=== PATIENT | male | born 1970 | race Caucasian/White ===

== ENCOUNTER 2019-04-30 10:41 | Inpatient (IN) | payer BC, OTHER ==
[~2019-04-30] VITALS: Ht 177.2 cm; Wt 110.0 kg
[~2019-04-30 10:41] MED LIST: ALPR1TAB7 PO; ASPI-903 PO; FISH1CAP PO; GLIP10TA14 PO; LIRA0.6P2 SQ; LISI-471 PO; LISI10TA2 PO; LORA1TAB PO; MAGN400T27 PO; METO-319 PO; METO-335 PO; RIVA20TA5 PO
[2019-04-30] MEDS ORDERED: METOPROLOL 5 MG INJ IV ONE ×2 (11:00→11:30)
[2019-04-30] MEDS ORDERED: ONDANSETRON 4 MG INJ IV STA (11:10)
[2019-04-30] MEDS ORDERED: DILTIAZEM 25 MG INJ ONE (11:35)
[2019-04-30] MEDS ORDERED: DILTIAZEM 25 MG INJ IV ONE (12:00)
[2019-04-30] MEDS ORDERED: ENOXAPARIN 100 MG/ML SYG SC ONE (12:00)
--- NOTE | 2019-04-30 12:19 | ERD ---
ER Documentation Chief Complaint Chief Complaint R39 fr work vomitting w/nuasea & palpitations HPI 49-year-old male presents by paramedics complaining of palpitations. Patient states he was in his normal state of health until this morning at which time he had nausea and nonbilious, nonbloody emesis which she relates to eating something. He states that immediately after vomiting, he had the onset of palpitations. This made him feel somewhat sweaty but he had no chest pain or shortness of breath and did not pass out. The palpitations were significant and he called the paramedics. I have reviewed the 3d technologist pre-hospital care. Pre-hospital vital signs were reviewed. Pre-hospital diagnostic tests were reviewed. Prehospital EKG indicated atrial fibrillation with rapid ventricular response. Upon arrival, patient is complaining of palpitations with no further chest pain or nausea. ROS All systems reviewed and are negative except as per history of present illness. Medications Home Meds Reported Medications Fish Oil/Dha/Epa (FISH OIL 1,200 MG FISH OIL) 1 Each Capsule, 1 EACH PO BID, CAP 04/30/19 Magnesium Oxide* (Mag-Oxide*) 400 Mg Tablet, 400 MG PO DAILY, TAB 04/30/19 Aspirin* (Aspirin* Chew) 81 Mg Tab.chew, 81 MG PO DAILY, TAB.CHEW 04/30/19 Liraglutide (Victoza 3-Moe) 0.6 Mg/0.1 Ml Pen.injctr, 0.6 MG SQ DAILY, SYR 04/30/19 Metoprolol Succinate* (Toprol XL*) 25 Mg Tab.sr.24h, 25 MG PO DAILY, #30 TAB total of 75 mg daily 04/30/19 Metoprolol Succinate* (Toprol XL*) 50 Mg Tab.er.24h, 50 MG PO DAILY, #30 TAB total of 75 mg daily 04/30/19 Lisinopril* (Lisinopril*) 20 Mg Tablet, 20 MG PO DAILY, #30 TAB 04/30/19 Discontinued Reported Medications Lisinopril* (Lisinopril*) 10 Mg Tablet, 10 MG PO DAILY, TAB 04/28/15 Alprazolam* (Alprazolam*) 1 Mg Tablet, 1 MG PO Q8H PRN for ANXIETY, TAB 04/28/15 Glipizide* (Glipizide*) 10 Mg Tablet, 10 MG PO DAILY, TAB 04/28/15 Discontinued Scripts Lorazepam* (Lorazepam*) 1 Mg Tablet, 1 MG PO Q8, #10 TAB Prov:KATIE ALICEA MD 04/28/15 Allergies Allergies: Coded Allergies: No Known Allergy (Unverified , 04/30/19) PMhx/Soc Patient had a previous echocardiogram that was normal and event monitors that were nondiagnostic No obvious ischemic work-up previously History of Surgery: No Anesthesia Reaction: No Hx Neurological Disorder: No Hx Respiratory Disorders: No Hx Cardiac Disorders: No Hx Psychiatric Problems: No Hx Miscellaneous Medical Probl: No Hx Alcohol Use: No Hx Substance Use: No Hx Tobacco Use: No Smoking Status: Never smoker FmHx Noncontributory for chief complaint Physical Exam Vitals Vital Signs Date Temp Pulse Resp B/P (MAP) Pulse Ox O2 O2 Flow FiO2 Time Delivery Rate 04/30/19 92 18 113/77 98 Nasal 2.0 11:55 (89) Cannula 04/30/19 114 18 136/73 99 Nasal 2.0 11:01 (94) Cannula 04/30/19 97.2 144 20 138/106 100 10:48 (117) 04/30/19 Nasal 2 10:45 Cannula Physical Exam GENERAL: Diaphoretic HEENT: Pupils equal, round, and reactive to light. EOMI. There is no scleral icterus. NECK: C-spine is soft and supple, there is no meningismus. There is no cervical lymphadenopathy. LUNGS: Clear to auscultation bilaterally. There are no rales, wheezes or rhonchi. HEART: Rapid, irregularly irregular rate and rhythm with no murmurs ABDOMEN: Soft, non-tender, non-distended. There are bowel sounds in all four quadrants. No rebound or guarding. EXTREMITIES: There is no peripheral cyanosis or edema. No focal swelling or erythema. NEURO: The patient moves all four extremities with 5/5 strength. Cranial nerves II - XII are intact. Normal gait. Alert and oriented SKIN: There is no apparent rash or petechiae. HEME/LYMPHATIC: There is no evidence of excessive bruising or lymphedema. PSYCHIATRIC: The patient does not appear anxious or depressed. Result Diagram: 04/30/19 1045 04/30/19 1045 Results 24 hrs Laboratory Tests Test 04/30/19 10:45 White Blood Count 10.2 10^3/ul Red Blood Count 5.85 10^6/ul Hemoglobin 16.2 g/dl Hematocrit 48.0 % Mean Corpuscular Volume 82.1 fl Mean Corpuscular Hemoglobin 27.7 pg Mean Corpuscular Hemoglobin Concent 33.8 g/dl Red Cell Distribution Width 13.2 % Platelet Count 287 10^3/UL Mean Platelet Volume 9.7 fl Immature Granulocytes % 0.300 % Neutrophils % 54.8 % Lymphocytes % 36.1 % Monocytes % 6.7 % Eosinophils % 1.9 % Basophils % 0.2 % Nucleated Red Blood Cells % 0.0 /100WBC Immature Granulocytes # 0.030 10^3/ul Neutrophils # 5.6 10^3/ul Lymphocytes # 3.7 10^3/ul Monocytes # 0.7 10^3/ul Eosinophils # 0.2 10^3/ul Basophils # 0.0 10^3/ul Nucleated Red Blood Cells # 0.0 10^3/ul Prothrombin Time 12.2 Sec Prothrombin Time Ratio 1.0 INR International Normalized Ratio 0.89 Activated Partial Thromboplast Time 28.5 Sec Sodium Level 140 mmol/L Potassium Level 4.6 mmol/L Chloride Level 103 mmol/L Carbon Dioxide Level 25 mmol/L Anion Gap 12 Blood Urea Nitrogen 19 mg/dl Creatinine 0.73 mg/dl Est Glomerular Filtrat Rate mL/min > 60 mL/min Glucose Level 212 mg/dl Calcium Level 9.9 mg/dl Troponin I < 0.012 ng/ml Current Medications Medications Dose Sig/Edgardo Start Time Status Last (Trade) Ordered Route PRN Stop Time Admin Dose Reason Admin Metoprolol 5 mg ONCE ONCE 04/30/19 DC 04/30/19 Tartrate IV 11:00 04/30/19 10:53 (Lopressor) 11:01 Ondansetron 4 mg ONCE STAT 04/30/19 DC 04/30/19 HCl (Zofran IV 11:10 04/30/19 11:16 Inj) 11:11 Metoprolol 5 mg ONCE ONCE 04/30/19 DC 04/30/19 Tartrate IV 11:30 04/30/19 11:17 (Lopressor) 11:34 Diltiazem 25 mg STK-MED 04/30/19 DC HCl ONCE .ROUTE 11:35 04/30/19 (Cardizem Iv) 11:36 Diltiazem 10 mg ONCE ONCE 04/30/19 DC 04/30/19 HCl IV 12:00 04/30/19 11:42 (Cardizem Iv) 12:01 Enoxaparin 100 mg ONCE ONCE 04/30/19 DC 04/30/19 Sodium SC 12:00 04/30/19 11:59 (Lovenox) 12:01 Procedures/MDM Patient was taken to a room, seen and evaluated. Comfort measures were initiated. Diagnostic tests were ordered and reviewed. 3 LEAD RHYTHM STRIP: Atrial fibrillation with rapid ventricular response [employer] EK lead EKG reviewed by myself: Atrial fibrillation with rapid ventricular response Normal Means and intervals No ST elevation, depression, or T wave inversion Impression: A. fib with RVR, no obvious ischemia EKG upon arrival to the emergency department interpreted by myself: Atrial fibrillation with rapid ventricular response at 149 bpm Normal axis and intervals No significant ST elevation or depression. Impression: A. 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 Patient was reevaluated. Patient appears to be improving, but continues to be a rapid ventricular response remains in atrial fibrillation MEDICAL DECISION MAKIN-year-old male presents the emergency department with acute palpitations indicative of an A. fib with RVR. At this time, patient shows no indications of this being ischemic. Overall, patient is required aggressive medical intervention for rate control and has been anticoagulated. Patient will require admission to the hospital for further rhythm monitoring as well as rate monitoring and further diagnostic evaluation including serial troponins. CRITICAL CARE: Time:>35 minutes Patient has a significant chance of clinical deterioration Treatments/Evaluations: Close monitoring and treatment of unstable vital signs, cardiorespiratory, and neurologic status, while maintaining tight balance of fluid, respiratory, and cardiac interventions. Departure Diagnosis: Primary Impression: Atrial fibrillation with rapid ventricular response Condition: Serious BEAR ALFARO Apr 30, 2019 12:19
[2019-04-30] MEDS ORDERED: ONDANSETRON 4 MG INJ IV PRN (12:30)
[2019-04-30] MEDS ORDERED: ACETAMINOPHEN 325 MG TAB PO PRN ×2 (12:30→13:30)
[2019-04-30] MEDS ORDERED: NACL 0.9% 3 ML SYG IV SCH (13:30)
[2019-04-30] MEDS ORDERED: LORAZEPAM 2 MG INJ IV PRN (13:30)
--- NOTE | 2019-04-30 13:46 | HP ---
Date/Time of Note Date/Time of Note DATE: 04/30/19 TIME: 13:45 Assessment/Plan VTE Prophylaxis Pharmacological prophylaxis: LMWH Lines/Catheters IV [facility]from [facility] Saline Lock Assessment/Plan Hospital Course 49-year-old male with comorbidities including HTN, DM type II, anxiety disorder, and obesity who presented to the emergency room with A. fib with RVR, who will be admitted to inpatient setting for further treatment and evaluation. 1. A. fib with RVR. Rate currently rate controlled. Continue beta-blockers. Obtain cardiology consult. 2D echocardiogram to evaluate the left ventricular ejection fraction. 2. Hypertension. Resume antihypertensives. 3. Diabetes mellitus type II. Hold oral agents. Start sliding scale insulin along with pre-meal insulin and basal insulin. Obtain hemoglobin A1c to evaluate the blood glucose control over the past few weeks. 4. Anxiety disorder. Start PRN anxiolytics. 5. Obesity. BMI 35 kilograms per meter squared. Therapeutic lifestyle changes will be advised. Plan: The patient will be admitted to inpatient telemetry floor. The patient will be started on a carbohydrate controlled diet. The patient will be started on DVT prophylaxis. The patient will remain a full code. Activities will be as tolerated. The rest of the patient's management will be based on the clinical course, inputs from consultants, and the results of diagnostic studies. Based on the patient's clinical presentation, he most probably requires at least 1 midnight's stay for further management and evaluation of his clinical presentation. The patient was seen in collaboration with Dr. Hamm. Result Diagram: 04/30/19 1045 04/30/19 1045 Results 24hrs Laboratory Tests Test 04/30/19 10:45 White Blood Count 10.2 Red Blood Count 5.85 Hemoglobin 16.2 Hematocrit 48.0 Mean Corpuscular Volume 82.1 Mean Corpuscular Hemoglobin 27.7 L Mean Corpuscular Hemoglobin Concent 33.8 Red Cell Distribution Width 13.2 Platelet Count 287 Mean Platelet Volume 9.7 # Immature Granulocytes % 0.300 Neutrophils % 54.8 Lymphocytes % 36.1 Monocytes % 6.7 Eosinophils % 1.9 Basophils % 0.2 Nucleated Red Blood Cells % 0.0 Immature Granulocytes # 0.030 Neutrophils # 5.6 Lymphocytes # 3.7 H Monocytes # 0.7 Eosinophils # 0.2 Basophils # 0.0 Nucleated Red Blood Cells # 0.0 Prothrombin Time 12.2 Prothrombin Time Ratio 1.0 INR International Normalized Ratio 0.89 Activated Partial Thromboplast Time 28.5 Sodium Level 140 Potassium Level 4.6 Chloride Level 103 Carbon Dioxide Level 25 Anion Gap 12 Blood Urea Nitrogen 19 Creatinine 0.73 Est Glomerular Filtrat Rate mL/min > 60 Glucose Level 212 Calcium Level 9.9 Troponin I < 0.012 HPI/ROS Admit Date/Time Admit Date/Time Hx of Present Illness This is a 49-year-old German male with past medical history of hypertension, anxiety, and diabetes mellitus type 2. The patient presented to the emergency room from work because of vomiting with nausea and palpitations. When paramedics arrived, the patient was noted to be in atrial fibrillation with rapid ventricular response. The patient denied any chest pain or dyspnea. The patient was complaining of some diaphoresis. The patient verbalized a similar episode approximately 1 year ago when he had palpitations after an episode of vomiting. The patient verbalized that he he ate some food that gave him vomiting and resulted in palpitations. The patient denied any abdominal pain or diarrhea. In the emergency room, the patient was noticed to be in atrial fibrillation with rapid ventricular response. The patient was treated with 2 doses of IV Lopressor 5 mg and a single dose of IV Cardizem 10 mg with improvement in the patient's heart rate. The patient's initial set of troponin was negative. ROS Constitutional: nausea Eyes: no complaints ENT: no complaints Respiratory: no complaints Cardiovascular: palpitations Gastrointestinal: nausea, vomiting Genitourinary: no complaints Musculoskeletal: no complaints Skin: no complaints Neurologic: no complaints Endocrine: no complaints Lymphatic: no complaints Psychological: no complaints Immunologic: no complaints PMH/Family/Social Past Medical History 1. Hypertension. 2. Diabetes mellitus type 2. 3. Anxiety disorder. 4. Obesity. Medications Current Medications Ondansetron HCl (Zofran Inj) 4 mg ER BRIDGE PRN IV NAUSEA/VOMITING; Start 04/30/19 at 12:30; Stop 05/01/19 at 12:29 IV Flush (NS 3 ml) 3 ml PER PROTOCOL IV ; Start 04/30/19 at 13:30 Lorazepam (Ativan) 0.5 mg Q6H PRN IV .ANXIETY; Start 04/30/19 at 13:30 Acetaminophen (Tylenol Tab) 650 mg Q6H PRN PO .PAIN 1-3 OR TEMP; Start 04/30/19 at 13:30 Coded Allergies: No Known Allergy (Unverified , 04/30/19) Past Surgical History Past Surgical Hx: no surgical history Social History The patient lives at home with his family. The patient owns a business. Alcohol Use: none Smoking Status: Never smoker Drug Use: none Exam/Review of Systems Vital Signs Vitals Vital Signs Date Temp Pulse Resp B/P (MAP) Pulse Ox O2 O2 Flow FiO2 Time Delivery Rate 04/30/19 98.4 103 17 117/85 97 Nasal 2.0 12:44 (96) Cannula Exam Exam General: Obese, 49 year-old male lying in bed in no apparent distress. HEENT: Normocephalic, atraumatic. Eyes: Anicteric sclerae, conjunctivae clear. ENT: Nasal septum midline, oral mucosa moist. Neck: Short and obese. Respiratory: Bilaterally clear breath sounds. No use of accessory muscles of respiration. No adventitious breath sounds. Cardiovascular: S1, S2 heard. Irregularly irregular rhythm. Abdomen: Soft, nontender, and nondistended. Bowel sounds positive in all 4 quadrants. Genitourinary: Deferred. Extremities: No cyanosis, no clubbing, no edema. Peripheral pulses palpable. Neurologic: Cranial nerves II through XII grossly intact. The patient is awake, alert, and oriented. Skin: Normal skin turgor. No skin rashes. Additional Comments CXR IMPRESSION: No acute cardiopulmonary disease. SELIN WALLACE NP Apr 30, 2019 13:45
[2019-04-30] MEDS ORDERED: GLUCAGON 1 MG INJ IM PRN (14:30)
[2019-04-30] MEDS ORDERED: DEXTROSE 50% 50 ML SYRINGE IV PRN ×2 (14:30)
[2019-04-30] MEDS ORDERED: GLUCOSE GEL 15 GRAM TUBE BUCCAL PRN (14:30)
[2019-04-30] MEDS ORDERED: GLUCOSE GEL 15 GRAM TUBE PO PRN ×2 (14:30)
--- NOTE | 2019-04-30 15:05 | RADRPT ---
Echocardiogram Report Patient Name: CULLEN GONSALEZPatient ID: [id number] : 1970 (49y 2m)Study Date: 04/30/2019 2:12:42 PM Gender: Alvino #: [id number] Tech: Carlos Butt [facility] Location: [facility] Ref.Physician: SELIN WALLACE Height(Cm): BSA: Weight(Kg): Quality: AdequateOrder Physician: SELIN WALLACE Account #: Procedures: Echocardiographic Report: Transthoracic echocardiogram with complete 2D, M-Mode, and doppler examination. Indications: Evaluate Left Ventricular function. Measurements: 2D/M Mode Doppler Measurement Value Normal Range Measurement Value Normal Range LVIDd 2D 4.6 [ 4.2 - 5.8 ] cm AV Peak Prabhjot 1.5 [ 100.0 - 170.0 ] cm/sec LVIDs 2D 2.4 [ 2.5 - 4.0 ] cm AV Peak PG 9.0 [ 2.0 - 9.0 ] mmHg LVPWd 2D 1.3 [ 0.6 - 1.0 ] cm LVOT Peak Prabhjot 1.0 [ 70.0 - 110.0 ] cm/sec IVSd 2D 1.4 [ 0.6 - 1.0 ] cm LVOT Peak PG 4.0 [ 2.0 - 6.0 ] mmHg AoR Diam 2D 3.3 [ 2.6 - 3.4 ] cm EDV 2D 94.9 [ 62.0 - 150.0 ] ml ESV 2D 19.3 [ 21.0 - 61.0 ] ml EF 2D 79.7 [ 52.0 - 72.0 ] percent LA Dimen 2D 3.8 [ 3.0 - 4.0 ] cm Findings: Left Ventricle: Normal left ventricular systolic function. Normal left ventricular cavity size. Mild hypertrophy of the basal septum. Ejection fraction is visually estimated at 65 %. Tissue Doppler/Mitral Doppler indices are indeterminate in this study due to the presence of atrial fibrillation. Right Ventricle: Normal right ventricular size. Normal right ventricular systolic function. Left Atrium: There is mild enlargement of left atrium. Right Atrium: The right atrium is normal in size. Mitral Valve: Normal appearance and function of the mitral valve with trace physiologic regurgitation. Aortic Valve: Normal appearance of the aortic valve. No significant aortic stenosis or insufficiency. Tricuspid Valve: Normal appearance and function of the tricuspid valve with trace physiologic regurgitation. Unable to obtain RVSP due to minimal presence of tricuspid regurgitation. Pulmonic Valve: Normal pulmonic valve appearance. Pericardium: Normal pericardium with no significant pericardial effusion. Aorta: Normal aortic root. IVC: The IVC is not well visualized. Conclusions: Technically difficult study. Normal left ventricular systolic function. Normal left ventricular cavity size. Mild hypertrophy of the basal septum. Ejection fraction is visually estimated at 65 %. Tissue Doppler/Mitral Doppler indices are indeterminate in this study due to the presence of atrial fibrillation. No significant valvular stenosis or regurgitation seen. Unable to obtain RVSP due to minimal presence of tricuspid regurgitation. The IVC is not well visualized. Electronically Signed By: Jac Kiser 2019-04-30 15:04:03 PDT
[2019-04-30] MEDS: METOPROLOL (XL) 50 MG TAB PO SCH (15:26)
--- NOTE | 2019-04-30 15:43 | CONS ---
Assessment/Plan Assessment/Plan Hospital Course (Demo Recall) Paroxysmal atrial fibrillation with RVR: Now his second occurrence and unrelated to alcohol use. Likely vagal triggered by his vomiting. I suspect he will convert on his own. EF is preserved and normal valves. CHADSVASC is 2 and he should be anticoagulated. N/V: thinks it may have been from his breakfast. Now resolved HTN DM: A1C 8.4 -increase home metoprolol succinate to 150mg for now. If converts and is bradycardic, may switch back to home dose of 75mg on discharge -hold lisinopril 20mg to allow for BB titration -start Xarelto 20mg tomorrow (prefers once a day dosing). Already received therapeutic lovenox in the ED today Consultation Date/Type/Reason Admit Date/Time Date of Consultation: Apr 30, 2019 Type of Consult Cardiology Reason for Consultation Afib with RVR Requesting Provider: SELIN WALLACE NP Date/Time of Note DATE: 04/30/19 TIME: 15:27 Hx of Present Illness 49 yo M with a h/o paroxysmal atrial fibrillation not on anticoagulation, DM, HTN, VIOLETTE, who presented with palpitations and was found to have afib with RVR. He notes that one year ago he had been drinking heavily and that same night he vomited and immediately after he had palpitations. He was hospitalized at [place] and by the am he had converted to sinus and was discharged. His field enumerator is Dr. Graica in [place]. After his episode last year, he had a ziopatch placed and did not have a recurrence. This am he had breakfast and while he was driving, he started to have nausea. He was afraid he would have the afib again after vomiting so he tried to avoid it. Eventually he had about 15 m inutes of vomiting and then started to have palpitations again. In the ER he was found to have afib with RVR. He had IV metoprolol and diltiazem with transient good effect. No PO meds were given yet. He otherwise feels well and is asking about going home. No chest pain or dyspnea. This episode was not related to alcohol use, today or even yesterday. per HPI Past Medical History per hPI Home Meds Reported Medications Fish Oil/Dha/Epa (FISH OIL 1,200 MG FISH OIL) 1 Each Capsule, 1 EACH PO BID, CAP 04/30/19 Magnesium Oxide* (Mag-Oxide*) 400 Mg Tablet, 400 MG PO DAILY, TAB 04/30/19 Aspirin* (Aspirin* Chew) 81 Mg Tab.chew, 81 MG PO DAILY, TAB.CHEW 04/30/19 Liraglutide (Victoza 3-Moe) 0.6 Mg/0.1 Ml Pen.injctr, 0.6 MG SQ DAILY, SYR 04/30/19 Metoprolol Succinate* (Toprol XL*) 25 Mg Tab.sr.24h, 25 MG PO DAILY, #30 TAB total of 75 mg daily 04/30/19 Metoprolol Succinate* (Toprol XL*) 50 Mg Tab.er.24h, 50 MG PO DAILY, #30 TAB total of 75 mg daily 04/30/19 Lisinopril* (Lisinopril*) 20 Mg Tablet, 20 MG PO DAILY, #30 TAB 04/30/19 Discontinued Reported Medications Lisinopril* (Lisinopril*) 10 Mg Tablet, 10 MG PO DAILY, TAB 04/28/15 Alprazolam* (Alprazolam*) 1 Mg Tablet, 1 MG PO Q8H PRN for ANXIETY, TAB 04/28/15 Glipizide* (Glipizide*) 10 Mg Tablet, 10 MG PO DAILY, TAB 04/28/15 Discontinued Scripts Lorazepam* (Lorazepam*) 1 Mg Tablet, 1 MG PO Q8, #10 TAB Prov:KATIE ALICEA MD 04/28/15 Medications Current Medications Ondansetron HCl (Zofran Inj) 4 mg ER BRIDGE PRN IV NAUSEA/VOMITING; Start 04/30/19 at 12:30; Stop 05/01/19 at 12:29 IV Flush (NS 3 ml) 3 ml PER PROTOCOL IV ; Start 04/30/19 at 13:30 Lorazepam (Ativan) 0.5 mg Q6H PRN IV .ANXIETY; Start 04/30/19 at 13:30 Acetaminophen (Tylenol Tab) 650 mg Q6H PRN PO .PAIN 1-3 OR TEMP; Start 04/30/19 at 13:30 Magnesium Oxide (Mag-Ox 400) 400 mg DAILY PO ; Start 05/01/19 at 09:00 Insulin Glargine (Lantus) 16 units DAILY@2000 SC ; Start 04/30/19 at 20:00 Insulin Aspart (Novolog Insulin Pen) 5 unit WITH MEALS SC ; Start 04/30/19 at 18:00 Insulin Aspart (Novolog Insulin Pen) NOVOLOG *MILD* ALGORITHM WITH MEALS BEDTIME SC ; Start 04/30/19 at 18:00 Enoxaparin Sodium (Lovenox) 40 mg DAILY SC ; Start 05/01/19 at 09:00 Miscellaneous Information 1 ea NOTE XX ; Start 04/30/19 at 14:30 Glucose (Glutose) 15 gm Q15M PRN PO DECREASED GLUCOSE; Start 04/30/19 at 14:30 Glucose (Glutose) 22.5 gm Q15M PRN PO DECREASED GLUCOSE; Start 04/30/19 at 14:30 Dextrose (D50w Syringe) 25 ml Q15M PRN IV DECREASED GLUCOSE; Start 04/30/19 at 14:30 Dextrose (D50w Syringe) 50 ml Q15M PRN IV DECREASED GLUCOSE; Start 04/30/19 at 14:30 Glucagon (Glucagen) 1 mg Q15M PRN IM DECREASED GLUCOSE; Start 04/30/19 at 14:30 Glucose (Glutose) 15 gm Q15M PRN BUCCAL DECREASED GLUCOSE; Start 04/30/19 at 14:30 Metoprolol Succinate (Toprol Xl) 150 mg DAILY PO Last administered on 04/30/19at 15:26; Admin Dose 150 MG; Start 04/30/19 at 15:30 Allergies: Coded Allergies: No Known Allergy (Unverified , 04/30/19) Past Surgical History Past Surgical Hx: no surgical history Social History Alcohol Use: none Smoking Status: Never smoker Drug Use: none Exam/Review of Systems Vital Signs Vitals Vital Signs Date Temp Pulse Resp B/P (MAP) Pulse Ox O2 O2 Flow FiO2 Time Delivery Rate 04/30/19 115 20 134/94 100 Nasal 2.0 14:18 (107) Cannula 04/30/19 98.4 12:44 Exam Constitutional: alert, oriented Psych: no complaints, nl mood/affect Head: normocephalic, atraumatic Neck: supple; No jvd Respiratory: clear to auscultation; No crackles/rales Cardiovascular: No regular rate and rhythm (IRIR, tachycardic), No edema, No systolic murmur Gastrointestinal: soft, non-tender; No distended Musculoskeletal: nl extremities to inspection Neurological: nl mental status, nl speech Labs Result Diagram: 04/30/19 1045 04/30/19 1045 Results 24hrs Laboratory Tests Test 04/30/19 10:14 04/30/19 10:45 Hemoglobin A1c 8.4 H Thyroid Stimulating Hormone (TSH) 1.490 Free Thyroxine 1.17 White Blood Count 10.2 Red Blood Count 5.85 Hemoglobin 16.2 Hematocrit 48.0 Mean Corpuscular Volume 82.1 Mean Corpuscular Hemoglobin 27.7 L Mean Corpuscular Hemoglobin Concent 33.8 Red Cell Distribution Width 13.2 Platelet Count 287 Mean Platelet Volume 9.7 # Immature Granulocytes % 0.300 Neutrophils % 54.8 Lymphocytes % 36.1 Monocytes % 6.7 Eosinophils % 1.9 Basophils % 0.2 Nucleated Red Blood Cells % 0.0 Immature Granulocytes # 0.030 Neutrophils # 5.6 Lymphocytes # 3.7 H Monocytes # 0.7 Eosinophils # 0.2 Basophils # 0.0 Nucleated Red Blood Cells # 0.0 Prothrombin Time 12.2 Prothrombin Time Ratio 1.0 INR International Normalized Ratio 0.89 Activated Partial Thromboplast Time 28.5 Sodium Level 140 Potassium Level 4.6 Chloride Level 103 Carbon Dioxide Level 25 Anion Gap 12 Blood Urea Nitrogen 19 Creatinine 0.73 Est Glomerular Filtrat Rate mL/min > 60 Glucose Level 212 Calcium Level 9.9 Troponin I < 0.012 Medications Medications Current Medications Ondansetron HCl (Zofran Inj) 4 mg ER BRIDGE PRN IV NAUSEA/VOMITING; Start 04/30/19 at 12:30; Stop 05/01/19 at 12:29 IV Flush (NS 3 ml) 3 ml PER PROTOCOL IV ; Start 04/30/19 at 13:30 Lorazepam (Ativan) 0.5 mg Q6H PRN IV .ANXIETY; Start 04/30/19 at 13:30 Acetaminophen (Tylenol Tab) 650 mg Q6H PRN PO .PAIN 1-3 OR TEMP; Start 04/30/19 at 13:30 Magnesium Oxide (Mag-Ox 400) 400 mg DAILY PO ; Start 05/01/19 at 09:00 Insulin Glargine (Lantus) 16 units DAILY@2000 SC ; Start 04/30/19 at 20:00 Insulin Aspart (Novolog Insulin Pen) 5 unit WITH MEALS SC ; Start 04/30/19 at 18:00 Insulin Aspart (Novolog Insulin Pen) NOVOLOG *MILD* ALGORITHM WITH MEALS BEDTIME SC ; Start 04/30/19 at 18:00 Enoxaparin Sodium (Lovenox) 40 mg DAILY SC ; Start 05/01/19 at 09:00 Miscellaneous Information 1 ea NOTE XX ; Start 04/30/19 at 14:30 Glucose (Glutose) 15 gm Q15M PRN PO DECREASED GLUCOSE; Start 04/30/19 at 14:30 Glucose (Glutose) 22.5 gm Q15M PRN PO DECREASED GLUCOSE; Start 04/30/19 at 14:30 Dextrose (D50w Syringe) 25 ml Q15M PRN IV DECREASED GLUCOSE; Start 04/30/19 at 14:30 Dextrose (D50w Syringe) 50 ml Q15M PRN IV DECREASED GLUCOSE; Start 04/30/19 at 14:30 Glucagon (Glucagen) 1 mg Q15M PRN IM DECREASED GLUCOSE; Start 04/30/19 at 14:30 Glucose (Glutose) 15 gm Q15M PRN BUCCAL DECREASED GLUCOSE; Start 04/30/19 at 14:30 Metoprolol Succinate (Toprol Xl) 150 mg DAILY PO Last administered on 04/30/19at 15:26; Admin Dose 150 MG; Start 04/30/19 at 15:30 LIDIA CASTILLO Apr 30, 2019 15:43
[2019-04-30 17:00] VITALS: BP 120/82; PULSE 78; RESP 20
[2019-04-30] MEDS: INSULIN ASPART [NOVOLOG] 3 ML PEN SC SCH ×3 (17:55→20:41)
[2019-04-30 18:29] VITALS: Ht 177.2 cm; Wt 110.0 kg
[2019-04-30 20:00] VITALS: BP 116/78; PULSE 88; RESP 18
[2019-04-30] MEDS ORDERED: INSULIN GLARGINE [LANTus] (100 UNITS/ML) SYG SC SCH (20:00)
[2019-04-30] MEDS ORDERED: METOPROLOL 25 MG TAB PO SCH (21:00)
[2019-05-01] VITALS: BP 118/75; PULSE 98; RESP 18
[2019-05-01 04:00] VITALS: BP 113/66; PULSE 86; RESP 18
[2019-05-01 07:13] VITALS: BP 113/67; PULSE 73; RESP 18
--- NOTE | 2019-05-01 07:51 | CONS ---
Assessment/Plan Assessment/Plan Hospital Course (Demo Recall) Paroxysmal atrial fibrillation with RVR: Now his second occurrence and unrelated to alcohol use. Likely vagal triggered by his vomiting. EF is preserved and normal valves. CHRISTY is 2 and now on Xarelto. I suspect he will convert on his own N/V: thinks it may have been from his breakfast. Now resolved HTN DM: A1C 8.4 -ok for d/c with Xarelto 20mg and Metoprolol succinate 150mg daily. Hold home lisinopril -f/u with Dr. Gracia or myself 1-2 weeks Consultation Date/Type/Reason Admit Date/Time Apr 30, 2019 at 12:21 Initial Consult Date 04/30/19 Type of Consult Cardiology Requesting Provider: SELIN WALLACE NP Date/Time of Note DATE: 05/01/19 TIME: 07:48 24 HR Interval Summary Free Text/Dictation No complaints Remains in afib but controlled rates now Exam/Review of Systems Vital Signs Vitals Vital Signs Date Temp Pulse Resp B/P (MAP) Pulse Ox O2 O2 Flow FiO2 Time Delivery Rate 05/01/19 97.5 73 18 113/67 93 Room Air 07:13 (82) 04/30/19 2.0 15:38 Intake and Output 04/30/19 04/30/19 05/01/19 1515:00 23:00 07:00 IntakeIntake Total 240 ml 700 ml BalanceBalance 240 ml 700 ml Exam Constitutional: alert, oriented Psych: no complaints, nl mood/affect Head: normocephalic, atraumatic Respiratory: clear to auscultation Cardiovascular: No regular rate and rhythm (IRIR, rate <100), No edema, No systolic murmur Gastrointestinal: soft, non-tender; No distended Neurological: nl mental status, nl speech Labs Result Diagram: 04/30/19 1045 04/30/19 1045 Results 24hrs Laboratory Tests Test 04/30/19 10:14 04/30/19 10:45 04/30/19 17:19 04/30/19 18:04 Hemoglobin A1c 8.4 H Thyroid Stimulating 1.490 Hormone (TSH) Free Thyroxine 1.17 White Blood Count 10.2 Red Blood Count 5.85 Hemoglobin 16.2 Hematocrit 48.0 Mean Corpuscular Volume 82.1 Mean Corpuscular 27.7 L Hemoglobin Mean Corpuscular 33.8 Hemoglobin Concent Red Cell Distribution 13.2 Width Platelet Count 287 Mean Platelet Volume 9.7 # Immature Granulocytes % 0.300 Neutrophils % 54.8 Lymphocytes % 36.1 Monocytes % 6.7 Eosinophils % 1.9 Basophils % 0.2 Nucleated Red Blood 0.0 Cells % Immature Granulocytes # 0.030 Neutrophils # 5.6 Lymphocytes # 3.7 H Monocytes # 0.7 Eosinophils # 0.2 Basophils # 0.0 Nucleated Red Blood 0.0 Cells # Prothrombin Time 12.2 Prothrombin Time Ratio 1.0 INR International 0.89 Normalized Ratio Activated 28.5 Partial Thromboplast Time Sodium Level 140 Potassium Level 4.6 Chloride Level 103 Carbon Dioxide Level 25 Anion Gap 12 Blood Urea Nitrogen 19 Creatinine 0.73 Est Glomerular Filtrat > 60 Rate mL/min Glucose Level 212 Calcium Level 9.9 Troponin I < 0.012 < 0.012 Creatine Kinase 97 Creatine Kinase Index 0.7 Creatinine Kinase MB 0.72 (Mass) Bedside Glucose 152 Test 04/30/19 20:38 Bedside Glucose 164 Medications Medications Current Medications Ondansetron HCl (Zofran Inj) 4 mg ER BRIDGE PRN IV NAUSEA/VOMITING; Start 04/30/19 at 12:30; Stop 05/01/19 at 12:29 IV Flush (NS 3 ml) 3 ml PER PROTOCOL IV ; Start 04/30/19 at 13:30 Lorazepam (Ativan) 0.5 mg Q6H PRN IV .ANXIETY; Start 04/30/19 at 13:30 Acetaminophen (Tylenol Tab) 650 mg Q6H PRN PO .PAIN 1-3 OR TEMP; Start 04/30/19 at 13:30 Magnesium Oxide (Mag-Ox 400) 400 mg DAILY PO ; Start 05/01/19 at 09:00 Insulin Glargine (Lantus) 16 units DAILY@2000 SC ; Start 04/30/19 at 20:00 Insulin Aspart (Novolog Insulin Pen) 5 unit WITH MEALS SC ; Start 04/30/19 at 17:55 Insulin Aspart (Novolog Insulin Pen) NOVOLOG *MILD* ALGORITHM WITH MEALS BEDTIME SC ; Start 04/30/19 at 17:55 Miscellaneous Information 1 ea NOTE XX ; Start 04/30/19 at 14:30 Glucose (Glutose) 15 gm Q15M PRN PO DECREASED GLUCOSE; Start 04/30/19 at 14:30 Glucose (Glutose) 22.5 gm Q15M PRN PO DECREASED GLUCOSE; Start 04/30/19 at 14:30 Dextrose (D50w Syringe) 25 ml Q15M PRN IV DECREASED GLUCOSE; Start 04/30/19 at 14:30 Dextrose (D50w Syringe) 50 ml Q15M PRN IV DECREASED GLUCOSE; Start 04/30/19 at 14:30 Glucagon (Glucagen) 1 mg Q15M PRN IM DECREASED GLUCOSE; Start 04/30/19 at 14:30 Glucose (Glutose) 15 gm Q15M PRN BUCCAL DECREASED GLUCOSE; Start 04/30/19 at 14:30 Metoprolol Succinate (Toprol Xl) 150 mg DAILY PO Last administered on 04/30/19at 15:26; Admin Dose 150 MG; Start 04/30/19 at 15:30 Rivaroxaban (Xarelto) 20 mg DAILY PO ; Start 05/01/19 at 09:00 LIDIA CASTILLO May 01, 2019 07:51
[2019-05-01] MEDS: INSULIN ASPART [NOVOLOG] 3 ML PEN SC SCH ×2 (07:55)
[2019-05-01] MEDS: METOPROLOL (XL) 50 MG TAB PO SCH (08:39)
[2019-05-01] MEDS ORDERED: LISINOPRIL 20 MG TAB PO SCH (09:00)
[2019-05-01] MEDS ORDERED: MAGNESIUM OXIDE 400 MG TAB PO SCH (09:00)
[2019-05-01] MEDS ORDERED: RIVAROXABAN 20 MG TABLET PO SCH (09:00)
[2019-05-01] MEDS ORDERED: METOPROLOL (XL) 50 MG TAB PO SCH (09:00)
[2019-05-01] MEDS ORDERED: ENOXAPARIN 40 MG/0.4 ML SYG SC SCH (09:00)
[2019-05-01] MEDS ORDERED: METOPROLOL (XL) 25 MG TAB PO SCH (09:00)
[2019-05-01] MEDS ORDERED: ASPIRIN 81 MG TAB PO SCH (09:00)
--- NOTE | 2019-05-01 09:05 | PDOCDIS ---
Discharge Instructions CONDITION [id number] Patient Condition: [id number] Stable HOME CARE INSTRUCTIONS: [id number] Special Diet: [id number] Low-cholesterol, low carbohydrate diet FOLLOW UP/APPOINTMENTS Follow-up Plan Jac Kiser MD Specialty: Cardiology Office Address [address] [place] [address]. [address] [place] [phone] Office OTHER ORDERS: Other Orders: 1. Take medications as per prescription. Take increased dose (150 mg) of Toprol-XL. Stop taking lisinopril. 2. Start taking Xarelto daily. Stop taking aspirin. 3. Take a low-cholesterol, low carbohydrate diet. 4. Resume activities as tolerated. 5. Follow-up with your animal ride attendant or in 1-2 weeks. 6. Please go to the nearest emergency room if you have chest pain, significant palpitations, shortness of breath, or any other unusual signs/symptoms. SELIN WALLACE NP May 01, 2019 09:05
--- NOTE | 2019-05-01 10:07 | DS ---
Date/Time of Note Date/Time of Note DATE: 05/01/19 TIME: 10:05 Discharge Summary Admission/Discharge Info Admit Date/Time Apr 30, 2019 at 12:21 Discharge Date/Time May 01, 2019 at 09:30 Discharge Diagnosis 1. A. fib with RVR. 2. Hypertension. 3. Diabetes mellitus type II. 4. Anxiety disorder. 5. Obesity. BMI 35 kilograms per meter squared. Consults 1. Jac Kiser MD, Cardiology. Procedures 2D Echocardiogram Conclusions: Technically difficult study. Normal left ventricular systolic function. Normal left ventricular cavity size. Mild hypertrophy of the basal septum. Ejection fraction is visually estimated at 65 %. Tissue Doppler/Mitral Doppler indices are indeterminate in this study due to the presence of atrial fibrillation. No significant valvular stenosis or regurgitation seen. Unable to obtain RVSP due to minimal presence of tricuspid regurgitation. The IVC is not well visualized. Hx of Present Illness This is a 49-year-old Faro[place] male with past medical history of hypertension, anxiety, and diabetes mellitus type 2. The patient presented to the emergency room from work because of vomiting with nausea and palpitations. When paramedics arrived, the patient was noted to be in atrial fibrillation with rapid ventricular response. The patient denied any chest pain or dyspnea. The patient was complaining of some diaphoresis. The patient verbalized a similar episode approximately 1 year ago when he had palpitations after an episode of vomiting. The patient verbalized that he he ate some food that gave him vomiting and resulted in palpitations. The patient denied any abdominal pain or diarrhea. In the emergency room, the patient was noticed to be in atrial fibrillation with rapid ventricular response. The patient was treated with 2 doses of IV Lopressor 5 mg and a single dose of IV Cardizem 10 mg with improvement in the patient's heart rate. The patient's initial set of troponin was negative. Hospital Course The patient was admitted to inpatient telemetry floor. A cardiology consult was obtained. The patient was maintained on beta-blockers for rate control. The patient was started on anticoagulation for stroke prophylaxis because of high [id number] score. The patient's heart rate remained controlled although he remained in atrial fibrillation. The patient underwent a 2D echocardiogram that was showing preserved left ventricular ejection fraction. Chest Pain Coordinator cleared this patient to be discharged home on increased dose of Lopressor, to be followed up with outpatient cardiology in 1 to 2 weeks. The patient's other problems include hypertension. The patient was maintained on antihypertensives for the same. Since he was started on increased dose of Toprol-XL, the patient was advised to stop taking lisinopril. Since he was started on Xarelto, he was advised to stop taking aspirin. The patient has diabetes mellitus type 2. His hemoglobin A1c was found to be 8.4. He was maintained on sliding scale insulin along with pre-meal insulin and basal insulin. The patient is also obese with a BMI of 35 kg/m. The patient was advised on weight reduction. His fasting lipid panel is pending at this time. The patient had a stable hospital course and the patient is stable for outpatient follow-up. Discharge Instructions 1. Take medications as per prescription. Take increased dose (150 mg) of Toprol-XL. Stop taking lisinopril. 2. Start taking Xarelto daily. Stop taking aspirin. 3. Take a low-cholesterol, low carbohydrate diet. 4. Resume activities as tolerated. 5. Follow-up with your urban planner or in 1-2 weeks. 6. Please go to the nearest emergency room if you have chest pain, significant palpitations, shortness of breath, or any other unusual signs/symptoms. The patient verbalized understanding of his discharge instructions. At this time I would like to thank for seeing the patient and providing clinical recommendations. The patient was seen in collaboration with Dr. Hamm. Home Meds Active Scripts Rivaroxaban* (Xarelto*) 20 Mg Tablet, 20 MG PO DAILY, #30 TAB Prov:SELIN WALLACE NP 05/01/19 Metoprolol Succinate* (Toprol XL*) 50 Mg Tab.er.24h, 150 MG PO DAILY for 14 Days, #42 TAB 150 mg (3 tabs) Orally daily Prov:SELIN WALLACE NP 05/01/19 Reported Medications Fish Oil/Dha/Epa (FISH OIL 1,200 MG FISH OIL) 1 Each Capsule, 1 EACH PO BID, CAP 04/30/19 Liraglutide (Victoza 3-Moe) 0.6 Mg/0.1 Ml Pen.injctr, 0.6 MG SQ DAILY, SYR 04/30/19 Discontinued Reported Medications Magnesium Oxide* (Mag-Oxide*) 400 Mg Tablet, 400 MG PO DAILY, TAB 04/30/19 Aspirin* (Aspirin* Chew) 81 Mg Tab.chew, 81 MG PO DAILY, TAB.CHEW 04/30/19 Metoprolol Succinate* (Toprol XL*) 25 Mg Tab.sr.24h, 25 MG PO DAILY, #30 TAB total of 75 mg daily 04/30/19 Metoprolol Succinate* (Toprol XL*) 50 Mg Tab.er.24h, 50 MG PO DAILY, #30 TAB total of 75 mg daily 04/30/19 Lisinopril* (Lisinopril*) 20 Mg Tablet, 20 MG PO DAILY, #30 TAB 04/30/19 Lisinopril* (Lisinopril*) 10 Mg Tablet, 10 MG PO DAILY, TAB 04/28/15 Alprazolam* (Alprazolam*) 1 Mg Tablet, 1 MG PO Q8H PRN for ANXIETY, TAB 04/28/15 Glipizide* (Glipizide*) 10 Mg Tablet, 10 MG PO DAILY, TAB 04/28/15 Discontinued Scripts Lorazepam* (Lorazepam*) 1 Mg Tablet, 1 MG PO Q8, #10 TAB Prov:KATIE ALICEA MD 04/28/15 Follow-up Plan Jac Kiser MD Specialty: Cardiology Office Address [address] [place] [address]. [address] [place] [address] Office Primary Care Provider Not On Staff Doctor Time spent on discharge: > 30 minutes Pending Labs Laboratory Tests Test 04/30/19 10:14 04/30/19 10:45 04/30/19 17:19 04/30/19 18:04 Hemoglobin A1c 8.4 % (0-5.9) Thyroid 1.490 Stimulating MIU/L (0.465-4. Hormone (TSH) 680) Free Thyroxine 1.17 ng/dl (0.64-1.7 9) White Blood 10.2 Count 10^3/ul (4.8-1 0.8) Red Blood 5.85 Count 10^6/ul (4.70- 6.10) Hemoglobin 16.2 g/dl (14.0-18. 0) Hematocrit 48.0 % (42.0-52.0) Mean 82.1 Corpuscular fl (82.0-101.0 Volume ) Mean 27.7 Corpuscular pg (29.0-33.0) Hemoglobin Mean 33.8 Corpuscular g/dl (32.0-37. Hemoglobin Conc 0) ent Red Cell 13.2 Distribution % (11.5-14.5) Width Platelet Count 287 10^3/UL (140-4 15) Mean Platelet 9.7 Volume fl (7.4-10.4) Immature 0.300 Granulocytes % % (0.001-0.429 ) Neutrophils % 54.8 % (39.0-77.0) Lymphocytes % 36.1 % (15.0-51.0) Monocytes % 6.7 % (0.0-11.0) Eosinophils % 1.9 % (0.0-7.0) Basophils % 0.2 % (0.0-2.0) Nucleated Red 0.0 Blood Cells % /100WBC (0.0-0 .0) Immature 0.030 Granulocytes # 10^3/ul (0.0-0 .031) Neutrophils # 5.6 10^3/ul (1.6-7 .5) Lymphocytes # 3.7 10^3/ul (0.8-2 .9) Monocytes # 0.7 10^3/ul (0.3-0 .9) Eosinophils # 0.2 10^3/ul (0.0-0 .5) Basophils # 0.0 10^3/ul (0.0-0 .1) Nucleated Red 0.0 Blood Cells # 10^3/ul (0.0-0 .0) Prothrombin 12.2 Time Sec (11.9-14.9 ) Prothrombin 1.0 Time Ratio INR 0.89 International Normalized Rati o Activated 28.5 Partial Thrombo Sec (23.0-35.0 plast Time ) Sodium Level 140 mmol/L (135-14 4) Potassium 4.6 Level mmol/L (3.5-5. 1) Chloride Level 103 mmol/L (97-110 ) Carbon Dioxide 25 Level mmol/L (21-31) Anion Gap 12 (5-13) Blood Urea 19 Nitrogen mg/dl (7-20) Creatinine 0.73 mg/dl (0.61-1. 24) Est Glomerular > 60 Filtrat mL/min (>60) Rate mL/min Glucose Level 212 mg/dl (70-220) Calcium Level 9.9 mg/dl (8.4-10. 2) Troponin I < 0.012 < 0.012 ng/ml (0.000-0 ng/ml (0.000-0 .120) .120) Creatine 97 Kinase IU/L (23-200) Creatine Kinase 0.7 Index Creatinine 0.72 Kinase MB ng/ml (0.0-2.4 (Mass) ) Bedside 152 Glucose mg/dL (70-220) Test 04/30/19 20:38 05/01/19 08:22 Bedside 164 180 Glucose mg/dL (70-220) mg/dL (70-220) SELIN WALLACE NP May 01, 2019 10:07
== END 2019-05-01 09:30 | disposition home or self-care (01) | DRG 310 ==
LOC: E/R 10:41 → TEL 12:21
PROVIDERS: ADMIT Internal Medicine; ATTEND Internal Medicine
DX: I48.0 Paroxysmal atrial fibrillation (principal); E11.9 Type 2 diabetes mellitus without complications; I10 Essential (primary) hypertension; R11.2 Nausea with vomiting, unspecified; F41.9 Anxiety disorder, unspecified; G47.33 Obstructive sleep apnea (adult) (pediatric); E66.9 Obesity, unspecified; Z68.35 Body mass index [BMI] 35.0-35.9, adult; Z79.4 Long term (current) use of insulin; Z79.82 Long term (current) use of aspirin; Z79.01 Long term (current) use of anticoagulants
CPT/HCPCS: 36415; 71045; 80048; 82550; 82553; 82962; 83036; 84439; 84443; 84484; 85025; 85610; 85730; 93005; 93306; 96372; 96374; 96375; J1650; J1815; J2405